=== PATIENT | female | born 1985 | race American Indian/Alaskan Native ===

== ENCOUNTER 2017-04-29 17:28 | Emergency (ER) | payer SELFPAY ==
[2017-04-29 18:03] VITALS: BP 102/59
--- NOTE | 2017-04-30 03:37 | Emergency Department Report ---
ED ENT HPI - General Chief complaint: Earache Stated complaint: EAR PAIN Time Seen by Provider: 04/30/17 01:33 Source: patient Mode of arrival: Ambulatory Limitations: No Limitations - History of Present Illness Initial comments: This is a 31 y.o. female presents with right ear pain and congestion for 4 days. Patient and partner put peroxide in right ear trying to flush it out because it felt clogged. Patient states she is flying out of town and didn't want this to get worse. States it feel like something is in there because hearing is muffled at times on that one side. Denies discharge or ringing. She has not tried taking anything OTC. MD complaint: ear pain (Right) -: days(s) (4) Location: R ear Severity: moderate Severity scale (0 -10): 5 Quality: aching Consistency: intermittent Improves with: swallowing Worsens with: none Associated Symptoms: hearing loss (hearing is muffled intermit on right). denies: fever, cough, gum swelling, toothache, pain with swallowing, sore throat , tinnitus, discharge from ear, rhinorrhea - Related Data Allergies Allergy/AdvReac Type Severity Reaction Status Date / Time codeine Allergy Hives Verified 04/29/17 18:04 ondansetron Allergy Hives Verified 04/29/17 18:04 [From Zofran (as hydrochloride)] ED Dental HPI - General Chief complaint: Earache Stated complaint: EAR PAIN Time Seen by Provider: 04/30/17 01:33 Source: patient Mode of arrival: Ambulatory Limitations: No Limitations - Related Data Allergies Allergy/AdvReac Type Severity Reaction Status Date / Time codeine Allergy Hives Verified 04/29/17 18:04 ondansetron Allergy Hives Verified 04/29/17 18:04 [From Zofran (as hydrochloride)] ED Review of Systems ROS: Stated complaint: EAR PAIN Other details as noted in HPI Constitutional: denies: chills, fever ENT: ear pain (right ear), congestion. denies: throat pain, dental pain, hearing loss, epistaxis Respiratory: denies: cough, shortness of breath, wheezing Cardiovascular: denies: chest pain, palpitations Gastrointestinal: denies: abdominal pain, nausea, diarrhea Neurological: denies: headache, weakness, paresthesias ED Past Medical Hx - Past Medical History Hx Asthma: Yes Additional medical history: migraines - Surgical History Past Surgical History?: Yes Additional Surgical History: uterus - Social History Smoking Status: Current Every Day Smoker Substance Use Type: Alcohol ED Physical Exam - General Limitations: No Limitations General appearance: alert, in no apparent distress - ENT ENT exam: Present: mucous membranes moist, other (redness, right ) - Neck Neck exam: Present: normal inspection - Respiratory Respiratory exam: Present: normal lung sounds bilaterally. Absent: respiratory distress - Cardiovascular Cardiovascular Exam: Present: regular rate, normal rhythm. Absent: systolic murmur, diastolic murmur, rubs, gallop - Neurological Exam Neurological exam: Present: alert, oriented X3 ED Course Vital Signs 04/29/17 17:57 Temperature 98.7 F Pulse Rate 81 Respiratory 16 Rate Blood Pressure 102/59 O2 Sat by Pulse 100 Oximetry ED Medical Decision Making - Medical Decision Making This is a 31 y.o. female presents with right ear pain and congestion for 4 days. Patient reports muffled sound on right at times. When she yawn hearing is normal because ear will pop. Admits to putting peroxide in ear to clean cerumen. Denies taking OTC medicine for symptoms. Review physical assessment Patient signed AMA form prior to diagnosis. Critical care attestation.: If time is entered above; I have spent that time in minutes in the direct care of this critically ill patient, excluding procedure time. ED Disposition Clinical Impression: Left against medical advice Disposition: DC-07 LEFT AGAINST MED ADVICE Is pt being admited?: No Condition: Stable Referrals: LEATHA WOMACK MD [Primary Care Provider] - 3-5 Days Forms: AMA Form
== END 2017-04-30 03:19 | disposition left against medical advice (07) ==
LOC: ED 17:28
DX: H92.01 Otalgia, right ear (principal); H83.8X1 Other specified diseases of right inner ear; J45.909 Unspecified asthma, uncomplicated; G43.909 Migraine, unspecified, not intractable, without status migrainosus; F17.200 Nicotine dependence, unspecified, uncomplicated; Z88.5 Allergy status to narcotic agent; Z88.8 Allergy status to other drugs, medicaments and biological substances
CPT/HCPCS: 99282

== ENCOUNTER 2017-11-26 19:40 | Emergency (ER) | payer SELFPAY ==
[2017-11-26 19:53] VITALS: BP 114/68
--- NOTE | 2017-11-26 23:06 | Emergency Department Report ---
- General Chief Complaint: Laceration/Recheck/Suture Stated Complaint: LEFT HEAD INJURY Time Seen by Provider: 11/26/17 23:01 Source: patient Mode of arrival: Ambulatory Limitations: No Limitations - History of Present Illness Initial Comments: There is a 32-year-old female presents for right temporal forehead laceration placed accidentally struck metal can was no LOC right temporal region laceration no bleeding mild swelling bleeding controlled with direct pressure proper patient patient states pain is 3/10 exacerbated by palpation and movement no dizziness no lightheadedness no nausea vomiting range of motion is intact Onset/Timin -: hour(s) Location: face Place: home Patient Tetanus UTD: Yes Context: accidental Associated Symptoms: pain - Related Data Previous Rx's Medication Instructions Recorded Last Taken Type traMADol [Ultram] 50 mg PO Q8HR PRN #15 tablet 11/26/17 Unknown Rx Allergies Allergy/AdvReac Type Severity Reaction Status Date / Time codeine Allergy Hives Verified 04/29/17 18:04 ondansetron Allergy Hives Verified 04/29/17 18:04 [From Zofran (as hydrochloride)] ED Review of Systems ROS: Stated complaint: LEFT HEAD INJURY Other details as noted in HPI Constitutional: denies: chills, fever Eyes: denies: eye pain, eye discharge, vision change ENT: denies: ear pain, throat pain Respiratory: denies: cough, shortness of breath, wheezing Cardiovascular: denies: chest pain, palpitations Endocrine: no symptoms reported Gastrointestinal: denies: abdominal pain, nausea, diarrhea Genitourinary: denies: urgency, dysuria, discharge Musculoskeletal: denies: back pain, joint swelling, arthralgia Skin: other (forehead laceration ) Neurological: denies: headache, weakness, paresthesias Psychiatric: denies: anxiety, depression Hematological/Lymphatic: denies: easy bleeding, easy bruising ED Past Medical Hx - Past Medical History Hx Asthma: Yes Additional medical history: migraines - Surgical History Additional Surgical History: uterus - Social History Smoking Status: Never Smoker Substance Use Type: None - Medications Home Medications: Home Medications Medication Instructions Recorded Confirmed Last Taken Type traMADol [Ultram] 50 mg PO Q8HR PRN #15 tablet 11/26/17 Unknown Rx ED Physical Exam - General Limitations: No Limitations General appearance: alert, in no apparent distress - Head Head exam: Present: normocephalic - Expanded Head Exam Expanded Head exam: Present: laceration (right forehead temporal region), contusion. Absent: abrasion, hematoma, racoon eyes, antonio's sign, general tenderness, tenderness of temporal artery, CSF rhinorrhea, CSF otorrhea - Eye Eye exam: Present: normal appearance, PERRL, EOMI. Absent: periorbital swelling , periorbital tenderness Pupils: Present: normal accommodation - ENT ENT exam: Present: normal exam, normal orophraynx, mucous membranes moist, TM's normal bilaterally, normal external ear exam - Neck Neck exam: Present: normal inspection, full ROM. Absent: tenderness, meningismus, lymphadenopathy, thyromegaly - Respiratory Respiratory exam: Present: normal lung sounds bilaterally. Absent: respiratory distress, wheezes, stridor, chest wall tenderness - Cardiovascular Cardiovascular Exam: Present: regular rate, normal rhythm, normal heart sounds. Absent: systolic murmur, diastolic murmur, rubs, gallop - GI/Abdominal GI/Abdominal exam: Present: soft, normal bowel sounds - Extremities Exam Extremities exam: Present: normal inspection - Back Exam Back exam: Present: normal inspection - Neurological Exam Neurological exam: Present: alert, oriented X3, CN II-XII intact, normal gait, reflexes normal. Absent: motor sensory deficit - Psychiatric Psychiatric exam: Present: normal affect, normal mood - Skin Skin exam: Present: warm, dry, intact, normal color. Absent: rash ED Course Vital Signs 11/26/17 19:46 Temperature 98 F Pulse Rate 77 Respiratory 16 Rate Blood Pressure 114/68 O2 Sat by Pulse 99 Oximetry - Laceration /Wound Repair Right Lateral Head Wound Location: face Wound Length (cm): 1 Wound's Depth, Shape: superficial Wound Explored: clean Betadine Prep?: Yes Wound Debrided: minimal Wound Repaired With: Steri-strips, Dermabond Progress: Right oral forehead laceration 1 cm no bleeding small contusion laceration superficial wound to Betadine solution and closed with skin prep Steri-Strip patient tolerated procedure without minimal distress patient given wound care instructions all bleeding controlled ED Medical Decision Making - Medical Decision Making Forehead laceration closed with Steri-Strips contusion is my there is no LOC a bleeding internal patient given wound care instructions patient will follow with PCP in 2-3 days wound check DC to home in stable condition with Ultram when necessary pain tetanus is up-to-date wound is clean there's been DC'd home in stable condition at this time Critical care attestation.: If time is entered above; I have spent that time in minutes in the direct care of this critically ill patient, excluding procedure time. ED Disposition Clinical Impression: Forehead laceration Qualifiers: Encounter type: initial encounter Qualified Code(s): S01.81XA - Laceration without foreign body of other part of head, initial encounter Disposition: DC-01 TO HOME OR SELFCARE Is pt being admited?: No Does the pt Need Aspirin: No Condition: Good Instructions: Laceration (ED), Skin Adhesive Care (ED) Prescriptions: traMADol [Ultram] 50 mg PO Q8HR PRN #15 tablet PRN Reason: Pain Referrals: DOC,ED, MD [Primary Care Provider] - 3-5 Days Forms: Work/School Release Form(ED) Time of Disposition: 23:10
== END 2017-11-26 23:37 | disposition home or self-care (01) ==
LOC: ED 19:40
DX: S01.81XA Laceration without foreign body of other part of head, initial encounter (principal); J45.909 Unspecified asthma, uncomplicated; G43.909 Migraine, unspecified, not intractable, without status migrainosus; Z88.5 Allergy status to narcotic agent; W22.8XXA Striking against or struck by other objects, initial encounter; Y93.89 Activity, other specified; Y92.89 Other specified places as the place of occurrence of the external cause; Y99.8 Other external cause status

== ENCOUNTER 2017-11-29 07:52 | Emergency (ER) | payer SELFPAY ==
[2017-11-29 08:05] VITALS: BP 121/47
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
== END 2017-11-29 10:28 | disposition home or self-care (01) ==
LOC: ED 07:52
DX: S03.42XA Sprain of jaw, left side, initial encounter (principal); J45.909 Unspecified asthma, uncomplicated; G43.909 Migraine, unspecified, not intractable, without status migrainosus; F17.200 Nicotine dependence, unspecified, uncomplicated; Z88.5 Allergy status to narcotic agent; Z88.8 Allergy status to other drugs, medicaments and biological substances; Y09 Assault by unspecified means; Y93.89 Activity, other specified; Y92.89 Other specified places as the place of occurrence of the external cause; Y99.8 Other external cause status
CPT/HCPCS: 99282

== ENCOUNTER 2018-08-31 16:15 | Emergency (ER) | payer SELFPAY ==
--- NOTE | 2018-08-31 16:22 | Emergency Department Report ---
Blank Doc - Documentation Documentation: This is a 33-year-old female that presents with generalized weakness, n/v and left sided abdominal pain. This initial assessment/diagnostic orders/clinical plan/treatment(s) is/are subject to change based on patient's health status, clinical progression and re- assessment by fellow clinical providers in the ED. Further treatment and workup at subsequent clinical providers discretion. Patient/guardians urged not to elope from the ED as their condition may be serious if not clinically assessed and managed. Initial orders include: 1- Patient sent to [facility] for further evaluation and treatment 2- labs 3- UA
[2018-08-31 16:25] VITALS: BP 121/66
[2018-08-31 16:45] LABS: Basophils % (Auto) 0.6 % (0.0-1.8); Eosinophils # (Auto) 0.2 K/mm3 (0.0-0.4); Hematocrit 38.8 % (30.3-42.9); Hemoglobin 13.4 gm/dl (10.1-14.3); Lymphocytes # (Auto) 2.4 K/mm3 (1.2-5.4); Lymphocytes % (Auto) 32.1 % (13.4-35.0); Mean Corpuscular HGB Conc 35 % (30-34); Mean Corpuscular Volume 82 fl (79-97); Monocytes # (Auto) 0.6 K/mm3 (0.0-0.8); Monocytes % (Auto) 7.5 % (0.0-7.3); Platelet Count 303 K/mm3 (140-440); Red Blood Count 4.71 M/mm3 (3.65-5.03); Red Cell Distribution Width 14.3 % (13.2-15.2)
[2018-08-31 16:55] LABS: INR 0.88 (0.87-1.13)
[2018-08-31 16:56] LABS: Partial Thromboplastin Time 36.3 Sec. (24.2-36.6)
[2018-08-31 17:04] LABS: Alanine Aminotransferase 11 units/L (7-56); Albumin 4.2 g/dL (3.9-5); BUN/Creatinine Ratio 13; Blood Urea Nitrogen 10 mg/dL (7-17); Hemolysis Index 8
[2018-08-31 17:27] LABS: Bilirubin,Urine NEG (Negative); Blood,Urine NEG (Negative); Color,Urine Yellow (Yellow); Mucus,Urine 2+ /HPF; Protein,Urine <15 mg/dL mg/dL (Negative); Urobilinogen,Urine < 2.0 mg/dL (<2.0); WBC,Urine < 1.0 /HPF (0.0-6.0)
--- NOTE | 2018-08-31 18:17 | XRay Report ---
PROCEDURE: XR CHEST ROUTINE 2V TECHNIQUE: PA and lateral chest radiographs were obtained. HISTORY: Chest Pain COMPARISONS: None. FINDINGS: Heart: Normal. Mediastinum/Vessels: Normal. Lungs/Pleural space: Normal. Bony thorax: No acute osseous abnormality. IMPRESSION: Normal examination. This document is electronically signed by Lisandro Awan MD., August 31 2018 07:14:19 PM ET
--- NOTE | 2018-08-31 18:56 | Emergency Department Report ---
ED General Adult HPI - General Chief complaint: Abdominal Pain Stated complaint: WEAK/COLD/BODY PAIN Time Seen by Provider: 08/31/18 16:21 Source: patient Mode of arrival: Ambulatory Limitations: No Limitations - History of Present Illness Initial comments: 33-year-old -[place]ym[place] female, complains of abdominal pain from couple of days nausea and vomiting. Patient reports that she feels weeks she reports a sore throat and left lower quadrant abdominal pain nausea and vomiting but able to eat chips. Last BM was 2 days ago was a pebble size. Not sure what she can take for nausea since she is allergic to Zofran. Past medical history of asthma fibroids and endometriosis. Onset/Timin -: days(s) Location: abdomen Severity scale (0 -10): 6 Quality: aching Consistency: intermittent Treatments Prior to Arrival: none - Related Data Previous Rx's Medication Instructions Recorded Last Taken Type traMADol [Ultram] 50 mg PO Q6HR PRN #12 tablet 11/26/17 Unknown Rx Ibuprofen [Motrin] 800 mg PO Q8HR PRN #20 tablet 11/29/17 Unknown Rx methOCARBAMOL [Robaxin TAB] 500 mg PO Q6H PRN #15 tablet 11/29/17 Unknown Rx Allergies Allergy/AdvReac Type Severity Reaction Status Date / Time codeine Allergy Hives Verified 04/29/17 18:04 ondansetron Allergy Hives Verified 04/29/17 18:04 [From Zofran (as hydrochloride)] ED Review of Systems ROS: Stated complaint: WEAK/COLD/BODY PAIN Other details as noted in HPI Comment: All other systems reviewed and negative Constitutional: denies: chills, fever Eyes: denies: eye pain, eye discharge, vision change ENT: denies: ear pain, throat pain Respiratory: denies: cough, shortness of breath, wheezing Cardiovascular: denies: chest pain, palpitations Endocrine: no symptoms reported Gastrointestinal: abdominal pain, nausea, vomiting, constipation. denies: diarrhea Genitourinary: denies: urgency, dysuria, discharge Musculoskeletal: denies: back pain, joint swelling, arthralgia Skin: denies: rash, lesions Neurological: denies: headache, weakness, paresthesias Psychiatric: denies: anxiety, depression Hematological/Lymphatic: denies: easy bleeding, easy bruising ED Past Medical Hx - Past Medical History Previous Medical History?: Yes Hx Asthma: Yes Additional medical history: migraines - Surgical History Past Surgical History?: Yes Additional Surgical History: uterus for fibroids - Social History Smoking Status: Current Every Day Smoker Substance Use Type: None - Medications Home Medications: Home Medications Medication Instructions Recorded Confirmed Last Taken Type traMADol [Ultram] 50 mg PO Q6HR PRN #12 tablet 11/26/17 Unknown Rx Ibuprofen [Motrin] 800 mg PO Q8HR PRN #20 tablet 11/29/17 Unknown Rx methOCARBAMOL [Robaxin TAB] 500 mg PO Q6H PRN #15 tablet 11/29/17 Unknown Rx ED Physical Exam - General Limitations: No Limitations General appearance: alert, in no apparent distress - Head Head exam: Present: atraumatic, normocephalic - Eye Eye exam: Present: normal appearance - ENT ENT exam: Present: mucous membranes moist - Neck Neck exam: Present: normal inspection - Respiratory Respiratory exam: Present: normal lung sounds bilaterally. Absent: respiratory distress - Cardiovascular Cardiovascular Exam: Present: regular rate, normal rhythm. Absent: systolic murmur, diastolic murmur, rubs, gallop - GI/Abdominal GI/Abdominal exam: Present: soft, tenderness (lower quadrant), normal bowel sounds - Extremities Exam Extremities exam: Present: normal inspection - Back Exam Back exam: Present: normal inspection - Neurological Exam Neurological exam: Present: alert, oriented X3 - Psychiatric Psychiatric exam: Present: normal affect, normal mood - Skin Skin exam: Present: warm, dry, intact, normal color. Absent: rash ED Course Vital Signs 08/31/18 16:22 Temperature 98 F Pulse Rate 70 Respiratory 18 Rate Blood Pressure 121/66 O2 Sat by Pulse 100 Oximetry ED Medical Decision Making - Lab Data Result diagrams: 08/31/18 16:32 08/31/18 16:32 - Radiology Data Radiology results: report reviewed Patient: ISRAEL PLAZA R#: [id number] : 1985 Acct:[id number] Age/Sex: 33 / F ADM Date: 08/31/18 Loc: ED Attending Dr: Ordering Physician: ELIZABETH ARMENDARIZ NP Date of Service: 08/31/18 Procedure(s): XR chest routine 2V Accession Number(s): [id number] cc: ELIZABETH ARMENDARIZ NP Fluoro Time In Minutes: PROCEDURE: XR CHEST ROUTINE 2V TECHNIQUE: PA and lateral chest radiographs were obtained. HISTORY: Chest Pain COMPARISONS: None. FINDINGS: Heart: Normal. Mediastinum/Vessels: Normal. Lungs/Pleural space: Normal. Bony thorax: No acute osseous abnormality. IMPRESSION: Normal examination. This document is electronically signed by Lisandro Liz MD., August 31 2018 07:14:19 PM ET Transcribed By: Dictated By: LISANDRO LIZ MD Electronically Authenticated By: LISANDRO LIZ MD Signed Date/Time: 08/31/181816 Patient: ISRAEL PLAZA R#: [id number] : 1985 Acct:[id number] Age/Sex: 33 / F ADM Date: 08/31/18 Loc: ED Attending Dr: Ordering Physician: TESS VALDEZ Date of Service: 08/31/18 Procedure(s): XR abdomen 1V ap Accession Number(s): [id number] cc: TESS VALDEZ Fluoro Time In Minutes: PROCEDURE: XR ABDOMEN 1V AP TECHNIQUE: Abdominal radiograph, single view. HISTORY: LLQ pain COMPARISONS: None . FINDINGS: Bowel gas pattern: Nonobstructive . Masses or calcifications: None . Bony structures: No significant abnormality . Other: None . IMPRESSION: No acute abnormality. This document is electronically signed by Lisandra Mayorga MD., August 31 2018 09:53:51 PM ET Transcribed By: [facility] Dictated By: LISANDRA MAYORGA MD Electronically Authenticated By: LISANDRA MAYORGA MD Signed Date/Time: 08/31/182054 DD/ 02 TD/TT: 08/31/182002 DD/ 03 TD/TT: 08/31/181804 - Medical Decision Making 33-year-old -[place] female comes in for nausea vomiting and left lower quadrant abdominal pain. Chest x-ray shows normal examination, KUB shows normal examination. Patient's had nothing for nausea she is allergic to multiple medications for antinausea. Patient's been able to eat a by mouth trial. Patient is stable to be discharged home to follow up primary care provider. Critical care attestation.: If time is entered above; I have spent that time in minutes in the direct care of this critically ill patient, excluding procedure time. ED Disposition Clinical Impression: Left lower quadrant abdominal pain of unknown etiology Disposition: DC-01 TO HOME OR SELFCARE Is pt being admited?: No Does the pt Need Aspirin: No Condition: Stable Instructions: Abdominal Pain (ED) Additional Instructions: Increase her fluid intake affect her diet as tolerated. Follow-up with her primary care provider should symptoms persist or gets worse. I have listed se pinto below for your convenience. Referrals: EVI WAKEFIELD MD [Primary Care Provider] - 3-5 Days [facility] [place] [Outside] - 3-5 Days [facility] [Outside] - 3-5 Days [facility] [Outside] - 3-5 Days Forms: Work/School Release Form(ED)
--- NOTE | 2018-08-31 20:55 | XRay Report ---
PROCEDURE: XR ABDOMEN 1V AP TECHNIQUE: Abdominal radiograph, single view. HISTORY: LLQ pain COMPARISONS: None . FINDINGS: Bowel gas pattern: Nonobstructive . Masses or calcifications: None . Bony structures: No significant abnormality . Other: None . IMPRESSION: No acute abnormality. This document is electronically signed by Lisandra Mayorga MD., August 31 2018 09:53:51 PM ET
== END 2018-08-31 21:40 | disposition home or self-care (01) ==
LOC: ED 16:15
DX: R10.32 Left lower quadrant pain (principal); R11.2 Nausea with vomiting, unspecified; F17.200 Nicotine dependence, unspecified, uncomplicated; G43.909 Migraine, unspecified, not intractable, without status migrainosus; J45.909 Unspecified asthma, uncomplicated; Z88.5 Allergy status to narcotic agent; Z88.8 Allergy status to other drugs, medicaments and biological substances
CPT/HCPCS: 36415; 71046; 74018; 80053; 81001; 83690; 84484; 84703; 85025; 85610; 85730; 93005; 93010

== ENCOUNTER 2019-04-02 05:34 | Emergency (ER) | payer OTHER ==
[2019-04-02 06:29] VITALS: BP 155/87
--- NOTE | 2019-04-02 06:49 | XRay Report ---
CHEST 1 VIEW INDICATION: cough COMPARISON: 08/31/2018 FINDINGS: Support devices: None Heart: Normal Lungs/Pleura: No acute pulmonary or pleural findings. IMPRESSION: 1. No acute disease and no interval change. Signer Name: Chaitanya Davenport MD Signed: 04/02/2019 6:44 AM Workstation Name: [id number]
--- NOTE | 2019-04-02 07:53 | Emergency Department Report ---
Minor Respiratory - HPI Chief Complaint: Upper Respiratory Infection Stated Complaint: FLU SXT Time Seen by Provider: 04/02/19 07:12 Duration: 4 Days Severity: moderate Minor Respiratory: Yes Cough, Yes Fever Other History: 33 year old -Maldivian female presents to the emergency room for, fever no greater than 100, chills, nausea, headache, vomiting and chest pain with cough since 03/30/2019. Patient states that she's been taken dozs-dbh-mwyvudr cough medication and Motrin. ED Review of Systems ROS: Stated complaint: FLU SXT Other details as noted in HPI Constitutional: chills, fever ENT: throat pain Respiratory: cough ED Past Medical Hx - Past Medical History Previous Medical History?: Yes Hx Asthma: Yes Additional medical history: migraines - Surgical History Past Surgical History?: Yes Additional Surgical History: uterus for fibroids - Social History Smoking Status: Current Some Day Smoker Substance Use Type: None - Medications Home Medications: Home Medications Medication Instructions Recorded Confirmed Last Taken Type traMADoL [Ultram] 50 mg PO Q6HR PRN #12 tablet 11/26/17 Unknown Rx Ibuprofen [Motrin] 800 mg PO Q8HR PRN #20 tablet 11/29/17 Unknown Rx methOCARBAMOL [Robaxin TAB] 500 mg PO Q6H PRN #15 tablet 11/29/17 Unknown Rx Minor Respiratory Exam - Exam General: Vital signs noted. No distress. Alert and acting appropriately. HEENT: Yes Pharyngeal Erythema, Yes Moist Mucous Membranes, No Pharyngeal Exudates, No Rhinorrhea, No Conjuctival Injection, No Frontal Tenderness, No Maxillary Tenderness Neck: Yes Supple, No Adenopathy Lungs: Yes Good Air Exchange, No Wheezes, No Ronchi, No Stridor, No Cough, No Labored Respirations, No Retractions, No Use of Accessory Muscles, No Other Abnormal Lung Sounds Heart: Yes Regular, No Murmur Abdomen: Yes Normal Bowel Sounds, No Tenderness, No Peritoneal Signs Skin: No Rash, No Edema Neurologic: Alert and oriented, no deficits. Musculoskeletal: Unremarkable. ED Course Vital Signs 04/02/19 05:41 Temperature 99.9 F H Pulse Rate 87 Respiratory 20 Rate Blood Pressure 155/87 O2 Sat by Pulse 97 Oximetry ED Medical Decision Making - Radiology Data Radiology results: report reviewed Patient: ISRAEL PLAZA#: [id number] : 1985 Acct:[id number] Age/Sex: 33 / F ADM Date: 04/02/19 Loc: ED Attending Dr: Ordering Physician: MADELAINE JOHNSON MD Date of Service: 04/02/19 Procedure(s): XR chest 1V ap Accession Number(s): [id number] cc: MADELAINE JOHNSON MD Fluoro Time In Minutes: CHEST 1 VIEW INDICATION: cough COMPARISON: 08/31/2018 FINDINGS: Support devices: None Heart: Normal Lungs/Pleura: No acute pulmonary or pleural findings. IMPRESSION: 1. No acute disease and no interval change. Signer Name: Chaitanya Davenport MD Signed: 04/02/2019 6:44 AM Workstation Name: [id number] Transcribed By: TM Dictated By: Chaitanya Davenport MD Electronically Authenticated By: Chaitanya Davenport MD Signed Date/Time: 04/02/19643 DD/ 3 TD/TT: - Medical Decision Making 33 year old -Maldivian female presents to the emergency room for, fever no greater than 100, chills, nausea, headache, vomiting and chest pain with cough since 03/30/2019. Patient states that she's been taken xfyq-iiu-boyycoi cough medication and Motrin. Chest x-ray is negative for any acute findings. Patient is afebrile. Patient is nontoxic not tachycardic. Patient is to be discharged home with instructions to do supportive care increase in her fluids taking Tylenol and IV Profen as needed for pain and fever and body aches. Patient to take grco-imm-mdpoxqu Robitussin. Patient to follow up with the primary care provider if her symptoms persist or gets worse. Critical care attestation.: If time is entered above; I have spent that time in minutes in the direct care of this critically ill patient, excluding procedure time. ED Disposition Clinical Impression: Acute viral syndrome Disposition: DC-01 TO HOME OR SELFCARE Is pt being admited?: No Does the pt Need Aspirin: No Condition: Stable Instructions: Viral Syndrome (ED) Additional Instructions: Chest x-ray is negative for any acute findings such as pneumonia or bronchitis. Continue with supportive care increase fluids advance her diet as tolerated take nyrs-alx-hwnbhbk medications for cough such as Robitussin or Mucinex. Tylenol or ibuprofen for pain and elevated temperature. Follow-up with the primary care provider if his symptoms persist or gets worse. Referrals: [facility] [Outside] - 3-5 Days Forms: Work/School Release Form(ED)
== END 2019-04-02 08:05 | disposition home or self-care (01) ==
LOC: ED 05:34
DX: B34.9 Viral infection, unspecified (principal); J45.909 Unspecified asthma, uncomplicated; G43.909 Migraine, unspecified, not intractable, without status migrainosus; F17.200 Nicotine dependence, unspecified, uncomplicated; Z79.899 Other long term (current) drug therapy; Z88.5 Allergy status to narcotic agent; Z88.8 Allergy status to other drugs, medicaments and biological substances
CPT/HCPCS: 71045

== ENCOUNTER 2019-04-04 19:11 | Emergency (ER) | payer OTHER ==
[2019-04-04] MEDS ORDERED: IPRATROPIUM 0.02% NEBU 2.5 ML IH ONE (19:44)
[2019-04-04] MEDS ORDERED: ALBUTEROL 2.5 MG/3 ML NEBU IH ONE (19:44)
[2019-04-04] MEDS ORDERED: methylPREDNISolone Sod Succinate 125 MG/2 ML INJ IV ONE (19:44)
--- NOTE | 2019-04-04 19:49 | Event Note ---
ED Screening Note Date of service: 04/04/19 Time: 19:45 ED Screening Note: c/o SOB x today diagnosed with the flu 3 days ago per pt +hx of asthma This initial assessment/diagnostic orders/clinical plan/treatment(s) is/are subject to change based on patients health status, clinical progression and re- assessment by fellow clinical providers in the ED. Further treatment and workup at subsequent clinical providers discretion. Patient/guardian urged not to elope from the ED as their condition may be serious if not clinically assessed and managed. Initial orders include: CXR continuous nebulizer
[2019-04-04] MEDS ORDERED: KETOROLAC 30 MG/1 ML INJ IV ONE (20:10)
[2019-04-04] MEDS ORDERED: ACETAMINOPHEN 500 MG TAB PO ONE (20:10)
[2019-04-04] MEDS ORDERED: SODIUM CHLORIDE 0.9% 1000 ML 1,000 ML IV ONE (20:10)
--- NOTE | 2019-04-04 20:30 | XRay Report ---
CHEST 2 VIEWS INDICATION: shortness of breath, recent flu. COMPARISON: None. FINDINGS: Support devices: None. Heart: Within normal limits. Lungs/Pleura: No acute air space or interstitial disease. No significant pleural effusion. IMPRESSION: No acute findings. Signer Name: Epifanio Pena MD Signed: 04/04/2019 8:26 PM Workstation Name: [id number]
[2019-04-04 21:19] LABS: Hematocrit 39.1 % (30.3-42.9); Hemoglobin 12.8 gm/dl (10.1-14.3); Mean Corpuscular HGB Conc 33 % (30-34); Mean Corpuscular Volume 84 fl (79-97); Platelet Count 229 K/mm3 (140-440); Red Blood Count 4.66 M/mm3 (3.65-5.03); Red Cell Distribution Width 14.2 % (13.2-15.2)
[2019-04-04 21:36] LABS: Alanine Aminotransferase 16 units/L (7-56); Albumin 3.6 g/dL (3.9-5); BUN/Creatinine Ratio 10; Blood Urea Nitrogen 8 mg/dL (7-17); Calcium 8.4 mg/dL (8.4-10.2); Hemolysis Index 15
[2019-04-04 21:52] LABS: Anisocytosis Few; Basophils % (Manual) 0 % (0.0-1.8); Total Cells Counted 100
[2019-04-04 22:13] LABS: Bacteria,Urine 2+ /HPF (Negative); Bilirubin,Urine NEG (Negative); Blood,Urine LG (Negative); Color,Urine Red (Yellow); Urobilinogen,Urine < 2.0 mg/dL (<2.0)
[2019-04-04 22:14] LABS: RBC,Urine > 182.0 /HPF (0.0-6.0)
--- NOTE | 2019-04-04 22:46 | Emergency Department Report ---
- General Chief Complaint: Upper Respiratory Infection Stated Complaint: DIFFICULTY IN BREATHING Time Seen by Provider: 04/04/19 19:43 Source: patient Mode of arrival: Ambulatory Limitations: No Limitations - History of Present Illness Initial Comments: Patient is a 33-year-old -[place] Islander female with no past medical history who presents to the ED with a complaint of acute onset persistent nasal and sinus congestion, frontal sinus pressure and headache, sore throat, dry cough with wheezing and chest tightness for the last 5 days, worse in the last 6 hours. Patient states that she is currently on azithromycin day 3 therapy for acute bronchitis prescribed recently by her ENT physician. Patient states that the last 6 hours she has been having chest tightness with wheezing and shortness of breath, generalized weakness, diaphoresis and diffuse body aches and pains. Patient denies chest pain, nausea, vomiting, abdominal pain, diarrhea, dysuria, urinary frequency and urgency or vaginal bleeding. MD Complaint: fever, cough, sore throat, rhinorrhea, nasal congestion, sinus pain, other (shortness of breath, wheezing, diffuse body aches and pains) -: Sudden, days(s) (5) Severity scale (0 -10): 7 Quality: sharp, aching Consistency: constant Improves With: nothing Worsens With: nothing Context: sick contacts Associated Symptoms: denies other symptoms, fever, chills, myalgias, diaphoresis, headache, rhinorrhea, nasal congestion, sore throat, cough, shortness of breath. denies: stiff neck, chest pain, abdominal pain, nausea, vomiting, diarrhea, dysuria, rash, confusion, right sweats, weight loss, epistaxis, hoarseness Treatments Prior to Arrival: "cold medicine", antibiotics - Related Data Previous Rx's Medication Instructions Recorded Last Taken Type traMADoL [Ultram] 50 mg PO Q6HR PRN #12 tablet 11/26/17 Unknown Rx Ibuprofen [Motrin] 800 mg PO Q8HR PRN #20 tablet 11/29/17 Unknown Rx methOCARBAMOL [Robaxin TAB] 500 mg PO Q6H PRN #15 tablet 11/29/17 Unknown Rx ALBUTEROL Inhaler (OR & NICU) 1 - 2 puff IH Q6H PRN #1 inh 04/04/19 Unknown Rx [ProAir HFA Inhaler] Benzonatate [Tessalon Perles] 100 mg PO Q8HR #30 capsule 04/04/19 Unknown Rx Cetirizine HCl [Zyrtec 10mg tab] 10 mg PO DAILY #30 tablet 04/04/19 Unknown Rx Ibuprofen [Motrin] 600 mg PO Q8H PRN #20 tablet 04/04/19 Unknown Rx methylPREDNISolone [Medrol 4MG 4 mg PO DAILY #21 tab.ds.pk 04/04/19 Unknown Rx DOSEPAK (21 tabs)] Allergies Allergy/AdvReac Type Severity Reaction Status Date / Time codeine Allergy Hives Verified 04/29/17 18:04 ondansetron Allergy Hives Verified 04/29/17 18:04 [From Zofran (as hydrochloride)] ED Review of Systems ROS: Stated complaint: DIFFICULTY IN BREATHING Other details as noted in HPI Constitutional: chills, fever, malaise, weakness Eyes: denies: eye pain, eye discharge, vision change ENT: throat pain, congestion. denies: ear pain Respiratory: cough, shortness of breath, wheezing Cardiovascular: chest pain (tightness). denies: palpitations Endocrine: no symptoms reported. denies: excessive sweating, flushing, intolerance to cold Gastrointestinal: denies: abdominal pain, nausea, vomiting, diarrhea Genitourinary: denies: urgency, dysuria, discharge Musculoskeletal: arthralgia, myalgia. denies: back pain, joint swelling Skin: denies: rash, lesions Neurological: headache. denies: weakness, paresthesias Psychiatric: denies: anxiety, depression Hematological/Lymphatic: denies: easy bleeding, easy bruising ED Past Medical Hx - Past Medical History Previous Medical History?: Yes Hx Asthma: Yes Additional medical history: migraines - Surgical History Past Surgical History?: Yes Additional Surgical History: uterus for fibroids - Social History Smoking Status: Never Smoker Substance Use Type: Marijuana - Medications Home Medications: Home Medications Medication Instructions Recorded Confirmed Last Taken Type traMADoL [Ultram] 50 mg PO Q6HR PRN #12 tablet 11/26/17 Unknown Rx Ibuprofen [Motrin] 800 mg PO Q8HR PRN #20 tablet 11/29/17 Unknown Rx methOCARBAMOL [Robaxin TAB] 500 mg PO Q6H PRN #15 tablet 11/29/17 Unknown Rx ALBUTEROL Inhaler (OR & NICU) 1 - 2 puff IH Q6H PRN #1 inh 04/04/19 Unknown Rx [ProAir HFA Inhaler] Benzonatate [Tessalon Perles] 100 mg PO Q8HR #30 capsule 04/04/19 Unknown Rx Cetirizine HCl [Zyrtec 10mg tab] 10 mg PO DAILY #30 tablet 04/04/19 Unknown Rx Ibuprofen [Motrin] 600 mg PO Q8H PRN #20 tablet 04/04/19 Unknown Rx methylPREDNISolone [Medrol 4MG 4 mg PO DAILY #21 tab.ds.pk 04/04/19 Unknown Rx DOSEPAK (21 tabs)] ED Physical Exam - General Limitations: No Limitations General appearance: alert, in no apparent distress - Head Head exam: Present: atraumatic, normocephalic, normal inspection - Eye Eye exam: Present: normal appearance, PERRL, EOMI - ENT ENT exam: Present: mucous membranes moist, TM's normal bilaterally, normal ext ernal ear exam, other (grossly congested nasal passages, erythematous oropharynx, palpable frontal sinus tenderness) - Neck Neck exam: Present: normal inspection, full ROM. Absent: lymphadenopathy - Respiratory Respiratory exam: Present: wheezes (moderately diffuse coarse wheezes). Absent: respiratory distress, rales, rhonchi, chest wall tenderness, accessory muscle use, decreased breath sounds - Cardiovascular Cardiovascular Exam: Present: regular rate, normal rhythm, normal heart sounds. Absent: systolic murmur, diastolic murmur, rubs, gallop - GI/Abdominal GI/Abdominal exam: Present: soft, normal bowel sounds. Absent: tenderness, guarding, hyperactive bowel sounds, hypoactive bowel sounds - Extremities Exam Extremities exam: Present: normal inspection, full ROM, normal capillary refill - Back Exam Back exam: Present: normal inspection, full ROM. Absent: tenderness, muscle spasm, paraspinal tenderness, vertebral tenderness - Neurological Exam Neurological exam: Present: alert, oriented X3, CN II-XII intact, normal gait, reflexes normal - Psychiatric Psychiatric exam: Present: normal affect, normal mood - Skin Skin exam: Present: warm, dry, intact, normal color. Absent: rash ED Course Vital Signs 04/04/19 04/04/19 19:37 19:43 Temperature 98.5 F 98.5 F Pulse Rate 69 72 Respiratory 18 18 Rate Blood Pressure 116/76 116/76 O2 Sat by Pulse 100 100 Oximetry ED Medical Decision Making - Lab Data Result diagrams: 04/04/19 20:55 04/04/19 20:55 - Radiology Data Radiology results: report reviewed, image reviewed Chest x-ray shows no acute cardiopulmonary abnormalities or pneumonitis. - Medical Decision Making This is a 33-year-old female with a history of asthma who presented to the ED with acute onset persistent shortness of breath, chest tightness, nasal and sinus congestion, dry cough, diffuse body aches and pains and generalized weakness. In the ED, patient is alert and oriented 3 and is not in distress. Patient received DuoNeb treatment in the ED, also received Solu-Medrol 125 mg IV, pain medications, normal saline 1 L IV bolus in the ED. On reevaluation, patient's wheezing and shortness of breath resolved with medications. Chest x- ray shows no acute cardiopulmonary commodities or pneumonitis. Patient symptoms are likely due to reactive airway disease given the patient recent viral upper respiratory infection diagnosis. Patient was discharged home and advised to complete taking the azithromycin that was recently prescribed. Patient was discharged home on Steroid Dosepak, albuterol inhaler and advised to follow-up with the primary care physician in 5-7 days for reevaluation. Patient was also advised to return to the ED immediately if her symptoms get worse. - Differential Diagnosis Asthma; Bronchitis; URI; Viral URI; Pneumonia Critical care attestation.: If time is entered above; I have spent that time in minutes in the direct care of this critically ill patient, excluding procedure time. ED Disposition Clinical Impression: Viral upper respiratory tract infection with cough, Acute asthmatic bronchitis Reactive airway disease with acute exacerbation Qualifiers: Asthma severity: mild Asthma persistence: persistent Qualified Code(s): J45.31 - Mild persistent asthma with (acute) exacerbation Disposition: TO HOME OR SELFCARE Is pt being admited?: No Does the pt Need Aspirin: No Condition: Stable Instructions: Acute Bronchitis (ED), Asthma (ED), Reactive Airways Disease (ED), Upper Respiratory Infection (ED) Additional Instructions: Complete all the previously prescribed antibiotics. Medications and drink plenty of fluids, follow-up with your primary care physician in 5-7 days for reevaluation. Return to the ED immediately if symptoms get worse. Prescriptions: methylPREDNISolone [Medrol 4MG DOSEPAK (21 tabs)] 4 mg PO DAILY #21 tab.ds.pk Ibuprofen [Motrin] 600 mg PO Q8H PRN #20 tablet PRN Reason: Pain ALBUTEROL Inhaler (OR & NICU) [ProAir HFA Inhaler] 1 - 2 puff IH Q6H PRN #1 inh PRN Reason: Dyspnea Benzonatate [Tessalon Perles] 100 mg PO Q8HR #30 capsule Cetirizine HCl [Zyrtec 10mg tab] 10 mg PO DAILY #30 tablet Referrals: MARIA ISABEL FRENCH MD [Staff Physician] - 7-10 days Time of Disposition: 22:56 Print Language: CZECH
[2019-04-05 01:19] VITALS: BP 128/70
== END 2019-04-04 23:10 | disposition home or self-care (01) ==
LOC: ED 19:11
DX: J45.901 Unspecified asthma with (acute) exacerbation (principal); J06.9 Acute upper respiratory infection, unspecified; G43.909 Migraine, unspecified, not intractable, without status migrainosus; F12.10 Cannabis abuse, uncomplicated; Z79.899 Other long term (current) drug therapy; Z88.5 Allergy status to narcotic agent; Z88.8 Allergy status to other drugs, medicaments and biological substances
CPT/HCPCS: 36415; 71046; 80053; 81001; 85007; 85025; 94640; 96374; 99284; J2930; J7030; 96361; J1885

== ENCOUNTER 2020-04-19 11:24 | Emergency (ER) | payer OTHER ==
[2020-04-19 11:32] VITALS: BP 127/74
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
[2020-04-19 13:16] LABS: Hematocrit 41.1 % (30.3-42.9); Hemoglobin 13.2 gm/dl (10.1-14.3); Mean Corpuscular HGB Conc 32 % (30-34); Mean Corpuscular Volume 82 fl (79-97); Platelet Count 341 K/mm3 (140-440); Red Cell Distribution Width 15.4 % (13.2-15.2)
[2020-04-19 13:37] LABS: Alanine Aminotransferase 31 units/L (7-56); Albumin 4.5 g/dL (3.9-5); BUN/Creatinine Ratio 18; Blood Urea Nitrogen 14 mg/dL (7-17); Calcium 9.1 mg/dL (8.4-10.2); Hemolysis Index 2
[2020-04-19 14:29] LABS: Band Neutrophils # (Manual) 0.2 K/mm3; Total Cells Counted 100
[2020-04-19 14:30] LABS: Platelet Estimate Consistent w Auto; RBC Morphology Normal
== END 2020-04-19 13:00 | disposition left against medical advice (07) ==
LOC: ED 11:24
DX: R11.10 Vomiting, unspecified (principal); Z53.21 Procedure and treatment not carried out due to patient leaving prior to being seen by health care provider
CPT/HCPCS: 36415; 80053; 83690; 85007; 85025

== ENCOUNTER 2020-11-02 21:27 | Emergency (ER) | payer OTHER ==
[2020-11-03 00:30] VITALS: BP 122/74
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
[2020-11-03] MEDS ORDERED: IBUPROFEN 600 MG TAB PO ONE (03:15)
[2020-11-03] MEDS ORDERED: HYDROcodone/ACETAMINOPHEN 5-325 MG TAB PO ONE (03:15)
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
== END 2020-11-03 04:53 | disposition home or self-care (01) ==
LOC: ED 21:27
DX: S00.03XA Contusion of scalp, initial encounter (principal); S16.1XXA Strain of muscle, fascia and tendon at neck level, initial encounter; S46.912A Strain of unspecified muscle, fascia and tendon at shoulder and upper arm level, left arm, initial encounter; J45.909 Unspecified asthma, uncomplicated; G43.909 Migraine, unspecified, not intractable, without status migrainosus; Z98.890 Other specified postprocedural states; F17.200 Nicotine dependence, unspecified, uncomplicated; Z88.5 Allergy status to narcotic agent; Z88.8 Allergy status to other drugs, medicaments and biological substances; V87.7XXA Person injured in collision between other specified motor vehicles (traffic), initial encounter; Y93.89 Activity, other specified; Y92.89 Other specified places as the place of occurrence of the external cause; Y99.8 Other external cause status
CPT/HCPCS: 70450; 72040; 99284